=== PATIENT | male | born 1955 ===

== ENCOUNTER 2019-06-08 05:34 | Inpatient (IN) | payer OTHER, MEDICARE ==
[~2019-06-08] VITALS: Ht 182.9 cm; Wt 96.5 kg
[~2019-06-08 05:34] MED LIST: AMLO10TA8 PO; METF10007 PO; METO50TA82 PO
[2019-06-08] MEDS ORDERED: LACTATED RINGERS 1,000 ML IV SCH (06:05)
[2019-06-08 06:07] VITALS: BP 132/88
[2019-06-08] MEDS ORDERED: BUPIVACAINE/PF 0.5% ONE (06:25)
[2019-06-08] MEDS ORDERED: THROMBIN 5,000 UNIT VIAL TP ONE (06:26)
[2019-06-08] MEDS ORDERED: EPINEPHRINE 1 MG/ML, 1ML ONE (06:26)
[2019-06-08] MEDS ORDERED: BACITRACIN 50,000 UNIT ONE (06:26)
[2019-06-08] MEDS ORDERED: VANCOMYCIN 1,000 MG ONE (06:26)
[2019-06-08] MEDS ORDERED: MIDAZOLAM 1 MG/ML, 2ML ONE (06:40)
[2019-06-08] MEDS ORDERED: FENTANYL PF 250 MCG/5ML ONE (06:40)
[2019-06-08] MEDS ORDERED: LIDOCAINE-MPF 2% ,5ML ONE (06:42)
[2019-06-08] MEDS ORDERED: PROPOFOL 10 MG/ML, 20ML ONE (06:42)
[2019-06-08] MEDS ORDERED: ROCURONIUM 10MG/ML,5ML ONE (06:42)
[2019-06-08] MEDS ORDERED: WATER-INJECTION,STERILE 10 ML IV ONE (06:43)
[2019-06-08] MEDS ORDERED: CEFAZOLIN 1,000 MG ONE ×2 (06:43)
[2019-06-08] MEDS ORDERED: PHENYLEPHRINE 10 MG/ML ONE (06:44)
[2019-06-08] MEDS ORDERED: ONDANSETRON 2MG/ML, 2ML ONE ×2 (06:45)
[2019-06-08] MEDS ORDERED: DEXAMETHASONE 4 MG/ML, 1ML ONE ×2 (06:45)
[2019-06-08] MEDS ORDERED: hydrALAzine 20 MG/ML, 1ML IV PRN (08:00)
[2019-06-08] MEDS ORDERED: PROMETHAZINE 25 MG/ML, 1ML IV PRN (08:00)
[2019-06-08] MEDS ORDERED: ACETAMINOPHEN 325 MG TABLET PO PRN (08:00)
[2019-06-08] MEDS ORDERED: HYDROmorphone 1 MG/ML, 1ML INJ IVPush PRN (08:00)
[2019-06-08] MEDS ORDERED: MEPERIDINE/PF 25MG/ML,1ML IVPush PRN (08:00)
[2019-06-08] MEDS ORDERED: OXYcodone 5 MG/5 ML ORAL.SOL UDC PO PRN (08:00)
[2019-06-08] MEDS ORDERED: OXYcodone 5 MG/5 ML ORAL.SOL UDC ONE (09:14)
[2019-06-08] MEDS ORDERED: FENTANYL PF 100 MCG/2ML ONE (09:14)
[2019-06-08] MEDS: FENTANYL PF 100 MCG/2ML IV PRN ×2 (09:18→09:36)
[2019-06-08] MEDS ORDERED: HYDROmorphone 1 MG/ML, 1ML INJ ONE (09:52)
[2019-06-08] MEDS ORDERED: METHOCARBAMOL 1,000 MG in DEXTROSE 5% 100 ML IV ONE ×2 (10:00→11:00)
[2019-06-08] MEDS ORDERED: METHOCARBAMOL 1000MG/10 ML IVPB ONE (10:00)
[2019-06-08 10:42] VITALS: BP 126/82
[2019-06-08] MEDS ORDERED: HYDROcodone/APAP 5/325 TABLET PO PRN (11:00)
[2019-06-08] MEDS ORDERED: DIPHENHYDRAMINE 50 MG/ML, 1ML IVPush PRN (11:00)
[2019-06-08] MEDS ORDERED: HYDROmorphone 2 MG/ML, 1ML IM PRN (11:00)
[2019-06-08] MEDS ORDERED: BISACODYL 10 MG SUPP PR PRN (11:00)
[2019-06-08] MEDS ORDERED: DIPHENHYDRAMINE 25 MG CAPSULE PO PRN (11:00)
[2019-06-08] MEDS ORDERED: METHOCARBAMOL 750 MG TABLET PO PRN (11:00)
[2019-06-08] MEDS ORDERED: MAGNESIUM HYDROXIDE 8%, 30ML UDC PO PRN (11:00)
[2019-06-08] MEDS ORDERED: HYDROmorphone 2MG TABLET PO PRN (11:00)
[2019-06-08] MEDS ORDERED: PROMETHAZINE 25 MG/ML, 1ML IM PRN (11:00)
[2019-06-08] MEDS ORDERED: ONDANSETRON 2MG/ML, 2ML IV PRN (11:00)
[2019-06-08] MEDS ORDERED: DIPHENHYDRAMINE 50 MG/ML, 1ML IM PRN (11:00)
[2019-06-08] MEDS: NS + 20MEQ KCL 1,000 ML IV SCH ×2 (12:03→22:23)
[2019-06-08 13:57] VITALS: BP 113/73
[2019-06-08] MEDS: CEFAZOLIN PMX 1GM/50ML 50 ML IVPB SCH ×2 (15:41→23:14)
[2019-06-08] MEDS: metFORMIN 500 MG TABLET PO SCH (17:00)
[2019-06-08 19:45] VITALS: BP 105/72
[2019-06-09 00:01] VITALS: BP 114/74
[2019-06-09 04:07] VITALS: BP 127/76
[2019-06-09] MEDS: ENOXAPARIN 40 MG/0.4 ML SQ SCH (06:26)
[2019-06-09] MEDS ORDERED: SUGAMMADEX 200 MG/2 ML IVPush ONE (06:54)
[2019-06-09] MEDS ORDERED: GLYCOPYRROLATE 0.2MG/1ML, 5ML ONE (06:54)
[2019-06-09 07:24] VITALS: BP 118/75
[2019-06-09] MEDS: metFORMIN 500 MG TABLET PO SCH ×2 (08:00→17:00)
[2019-06-09] MEDS: NS + 20MEQ KCL 1,000 ML IV SCH ×2 (08:00→17:31)
[2019-06-09] MEDS: METOPROLOL TARTRATE 50 MG TABLET PO SCH (09:00)
[2019-06-09] MEDS: AMLODIPINE 10 MG TAB PO SCH (09:28)
[2019-06-09] MEDS: SENNA/DOCUSATE TABLET PO SCH (09:28)
[2019-06-09] MEDS: CEFAZOLIN PMX 1GM/50ML 50 ML IV SCH ×3 (09:29→23:56)
[2019-06-09 13:26] VITALS: BP 115/67
[2019-06-09] MEDS: METHOCARBAMOL 750 MG TABLET PO PRN (16:10)
[2019-06-09 19:26] VITALS: BP 108/70
[2019-06-10] MEDS: METHOCARBAMOL 750 MG TABLET PO PRN ×2 (00:03→06:21)
[2019-06-10 01:09] VITALS: BP 105/63
[2019-06-10] MEDS: NS + 20MEQ KCL 1,000 ML IV SCH (04:00)
[2019-06-10] MEDS: ENOXAPARIN 40 MG/0.4 ML SQ SCH (04:36)
[2019-06-10] MEDS: OXYcodone/APAP 5/325MG TABLET PO PRN ×3 (06:21→10:23)
[2019-06-10] MEDS: metFORMIN 500 MG TABLET PO SCH (08:00)
[2019-06-10] MEDS: CEFAZOLIN PMX 1GM/50ML 50 ML IV SCH (08:00)
[2019-06-10 08:15] VITALS: BP 110/84
[2019-06-10] MEDS: METOPROLOL TARTRATE 50 MG TABLET PO SCH (08:41)
[2019-06-10] MEDS: AMLODIPINE 10 MG TAB PO SCH (08:42)
[2019-06-10] MEDS: SENNA/DOCUSATE TABLET PO SCH (08:42)
[2019-06-10] MEDS ORDERED: METH750T2 PO (09:07)
[2019-06-10] MEDS ORDERED: OXYC-307 PO (09:08)
[2019-06-10] MEDS ORDERED: SENN-177 PO (09:09)
== END 2019-06-10 11:45 | disposition home or self-care (01) | DRG 517 ==
LOC: ORIP 05:34 → 4NE 10:30 → DCLOUNGE 06-10 11:26
PROVIDERS: ADMIT Neurological Surgery; ATTEND Neurological Surgery
PROC: 01NR0ZZ Release Sacral Nerve, Open Approach (ICD-10-PCS; 2019-06-08)
PROC: 01NB0ZZ Release Lumbar Nerve, Open Approach (ICD-10-PCS; principal; 2019-06-08 07:00)
DX: M48.062 Spinal stenosis, lumbar region with neurogenic claudication (principal); M51.16 Intervertebral disc disorders with radiculopathy, lumbar region; M46.90 Unspecified inflammatory spondylopathy, site unspecified; E88.2 Lipomatosis, not elsewhere classified; I10 Essential (primary) hypertension; E11.9 Type 2 diabetes mellitus without complications
CPT/HCPCS: 72100; J3490; S0020; 82962; C1729; G0378; J0171; J0690; J1100; J1170; J2250; J2405; J2704; J3010; J3370; J3480; J2370; J2800